=== PATIENT | female | born 1975 | race Caucasian/White ===

== ENCOUNTER 2019-04-10 11:24 | Day surgery (SDC) ==
[~2019-04-10 11:24] MED LIST: DIPRIVAN 1% ONE; XYLOCAINE-MPF 2% ONE
[2019-04-10] MEDS ORDERED: REGLAN ONE (12:00)
[2019-04-10] MEDS ORDERED: LR 1,000 ML ONE ×2 (12:00→17:18)
[2019-04-10] MEDS ORDERED: KEFZOL 1 GM/D5W 2 GM/100 ML IVPB ONE (12:00)
[2019-04-10] MEDS ORDERED: PEPCID ONE (12:00)
[2019-04-10] MEDS ORDERED: DILAUDID ONE (13:24)
[2019-04-10] MEDS ORDERED: PRECEDEX ONE (13:39)
[2019-04-10] MEDS ORDERED: QUELICIN (DOSE) ONE (14:47)
[2019-04-10] MEDS ORDERED: ZOFRAN ONE (14:47)
[2019-04-10] MEDS ORDERED: ZEMURON ONE (14:47)
[2019-04-10] MEDS ORDERED: DECADRON ONE (14:47)
[2019-04-10] MEDS ORDERED: OFIRMEV 1000 MG/ISOTONIC SOLN 1,000 MG/100 ML BOTTLE ONE (16:36)
[2019-04-10] MEDS ORDERED: BRIDION ONE (16:40)
[2019-04-10] MEDS ORDERED: MORPHINE IV PRN (17:33)
--- NOTE | 2019-04-10 17:41 | Diag Imaging Result Doc PS360 ---
EXAM: CHEST-PORTABLE HISTORY: post op percutaneous neph TECHNIQUE: Single view COMPARISON: 07/03/2014 FINDINGS: Poor inspiratory effort. No cardiomegaly. No pulmonary edema. No pneumothoraces or pleural effusions identified. There is atelectasis in the lower left lung. IMPRESSION: Left basilar atelectasis Electronically signed by Jesse Cullen 04/10/2019 5:39 PM
[2019-04-10] MEDS ORDERED: NS 1,000 ML ONE (17:44)
[2019-04-10] MEDS ORDERED: DILAUDID IV PRN ×2 (17:45)
[2019-04-10] MEDS ORDERED: PHENERGAN PO PRN (17:45)
[2019-04-10] MEDS ORDERED: PHENERGAN IV PRN (17:45)
[2019-04-10] MEDS ORDERED: ZOFRAN IV PRN (17:45)
[2019-04-10] MEDS ORDERED: OXY IR PO PRN ×2 (17:45)
[2019-04-10] MEDS ORDERED: SODIUM CHLORIDE 0.9% INJ PRN (17:45)
[2019-04-10] MEDS ORDERED: DITROPAN PO PRN (17:45)
[2019-04-10] MEDS ORDERED: BENADRYL LIQUID PO PRN (17:45)
[2019-04-10] MEDS ORDERED: BENADRYL IV PRN (17:45)
[2019-04-10] MEDS ORDERED: PHENERGAN PR PRN (17:45)
[2019-04-10] MEDS ORDERED: LABETALOL IV PRN (17:45)
[2019-04-10 18:33] LABS: BASO# 0.04 X1000 (0.0-0.2); BASO% 0.2 % (0.0-0.8); EOS% 1.8 % (0.0-10.0); HEMATOCRIT 33.8 % (37.0-47.0); HEMOGLOBIN 10.8 g/dL (12.0-16.0); IMM GRAN# 0.12 X1000 (0.0-0.04); IMM GRAN% 0.6 % (0.0-0.5); LYMPH# 3.27 X1000 (1.2-3.4); MCH 28.3 PG (27-31); MCV 88.5 FL (81-99); MONO# 0.46 X1000 (0.11-0.59); MONO% 2.1 % (1.7-9.3); MPV 9.2 FL (7.4-10.4); NEUT# 17.48 X1000 (1.4-6.5); NEUT% 80.3 % (42.2-75.2); PLT 463 X1000 (130-400); RBC 3.82 XMIL (4.2-5.4); RDW 15.1 % (11.5-14.5); WBC 21.77 X1000 (4.8-10.8)
[2019-04-10] MEDS: TORADOL IV SCH ×2 (18:39→23:41)
[2019-04-10] MEDS: NS 1,000 ML IV SCH (18:40)
[2019-04-10 18:57] LABS: AGAP 16; BUN 17 mg/dL (8-22); CALCIUM 9.4 mg/dL (8.8-10.2); CHLORIDE 101 mmol/L (98-107); COSMO 289; ESTIMATED GFR > 60; GLUCOSE 314 mg/dL (70-104); POTASSIUM 4.5 mmol/L (3.5-5.1); SODIUM 138 mmol/L (136-145); TCO2 21 mmol/L (25-35)
[2019-04-10 19:14] LABS: BANDS 1 % (0-1); LARGE PLATELETS OCCASIONAL; LYMPHS 12 % (21-51); MONO 2 % (1-9); SEGS 85 % (42-75)
[2019-04-10] MEDS: KEFZOL 2 GM/D5W 2 GM/50 ML IVPB IV SCH (22:18)
[2019-04-10] MEDS: PERIDEX MT SCH (22:18)
[2019-04-10] MEDS: COLACE PO SCH (22:18)
[2019-04-10] MEDS: NORVASC PO SCH (22:18)
[2019-04-10] MEDS ORDERED: OFIRMEV 1000 MG/ISOTONIC SOLN 1,000 MG/100 ML BOTTLE IV PRN (23:00)
[2019-04-11] MEDS: NS 1,000 ML IV SCH (05:32)
[2019-04-11] MEDS: TORADOL IV SCH (05:33)
[2019-04-11] MEDS: KEFZOL 2 GM/D5W 2 GM/50 ML IVPB IV SCH (05:33)
[2019-04-11 06:12] LABS: HEMATOCRIT 31.4 % (37.0-47.0); HEMOGLOBIN 9.8 g/dL (12.0-16.0); MCH 28.2 PG (27-31); MCHC 31.2 g/dL (33-37); MCV 90.5 FL (81-99); MPV 9.5 FL (7.4-10.4); RBC 3.47 XMIL (4.2-5.4); WBC 15.24 X1000 (4.8-10.8)
[2019-04-11 06:23] LABS: CALCIUM 8.8 mg/dL (8.8-10.2); CREATININE 1.2 mg/dL (0.5-0.9); POTASSIUM 4.3 mmol/L (3.5-5.1)
--- NOTE | 2019-04-11 07:29 | Diag Imaging Result Doc PS360 ---
EXAM: KUB ABDOMEN INDICATION: CYSTOSCOPY SURGERY TECHNIQUE: 2 views COMPARISON: 07/03/2014 FINDINGS: There are unremarkable bowel gas and stool patterns. There is no obstructive bowel pattern. There is no evidence of large volume free abdominal gas. There is a right sided ureteral stent in the expected position. IMPRESSION: No evidence of acute pathology by plain radiograph. Electronically signed by Joseph Jaime 04/11/2019 7:26 AM
[2019-04-11 08:24] VITALS: BP 148/78
[2019-04-11] MEDS ORDERED: PRINZIDE 10/12.5MG PO SCH (09:00)
[2019-04-11] MEDS: PERIDEX MT SCH (09:26)
[2019-04-11] MEDS: COLACE PO SCH (09:27)
[2019-04-11] MEDS: NORVASC PO SCH (09:27)
[2019-04-11] MEDS ORDERED: TYLENOL PO PRN (23:00)
--- NOTE | 2019-04-15 14:38 | OPERATIVE NOTE ---
PROCEDURE DATE: 04/10/2019 SURGEON: Jonathon Moon MD. 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 PROCEDURE NAME: 1. Cystoscopy. 2. Placement of right ureteral catheter. 3. Right antegrade percutaneous nephrostomy access. 4. Right percutaneous nephrostolithotomy. 5. Cystoscopy with retrograde placement of a right 6-Colombian-24 cm ureteral stent. INDICATIONS: A 44-year-old female with recurrent urolithiasis who presented with a large right distal ureteral stone for which she underwent ureteroscopy with laser lithotripsy. During admission, she was found to have a very large staghorn stone, at least over 3 cm. She presents for definitive intervention. FINDINGS: There were several sizable stones ranging from 8 to 15 mm in the lower pole area. There were also some smaller stones in the upper pole. There was a large staghorn calculus that extended into the area of ureteropelvic junction. Multiple stone fragments were removed and discarded as her stone has been analyzed. Successful stent placement in the retrograde fashion after conclusion of procedure. Access was done via lower pole calyx. DESCRIPTION OF PROCEDURE: After obtaining informed consent, patient was brought to the operating room. Perioperative antibiotics and general endotracheal anesthesia were administered. She was first placed in modified frogleg position on the stretcher with the genitals prepped and draped in sterile fashion. A 21-Colombian rigid cystoscope was then used to gain access to the urethra and the bladder. Her bladder was briefly examined and I did not see any mucosal lesions, excessive trabeculations, diverticula noted. Her right ureteral orifice was cannulated with PTFE wire followed by introduction of a 5-Colombian open-ended ureteral catheter over the wire to approximately the 20 cm perry. The cystoscope was then removed. A 16-Colombian Mendoza catheter was introduced and bladder was drained. 10 mL of sterile water were placed in the balloon. A 0 silk suture was used to secure the open-ended ureteral catheter to the Mendoza catheter. We then positioned the patient in prone on the table. Her upper and lower extremities and her breasts were appropriately padded. She was reprepped and redraped in sterile fashion. We then performed right retrograde pyelogram by introducing 50% diluted Omnipaque dye via previous introduced open-ended ureteral catheter. It revealed fairly dilated calices with what appeared to be several larger filling defects in the lower pole, interpolar region, and upper pole area as well as a huge filling defect consistent with a staghorn stone which was likely 5 cm in size. I elected to use one of the lower pole calices for access. We used fluoroscopy in the anterior-posterior orientation at a 20 degree angle. A small stab incision was made with an 11 blade and a finder needle was introduced. Under fluoroscopic guidance, the tip of the needle was positioned at the entrance of a lower pole calyx. We confirmed its proper position by seeing the return of light pink urine from the sheath of the needle. Following that, I introduced a Sensor wire via the needle into the right renal pelvis. We then used sequential dilators from 8, 10, and 12-Colombian to dilate the tract followed by introduction of the dual obturator catheter with the inner lumen retrieved. Since I had a large outer lumen, I was now able to place a PTFE wire as our working wire. NephroMax balloon was introduced over the PTFE wire with the radiopaque tip positioned at the entrance of the calyx We increased the pressure in the balloon to 14 cm of water. We then introduced a 30-Colombian sheath was over the NephroMax balloon followed by deflation of the balloon in its removal. Rigid resectoscope was then introduced and we were just at the entrance of the lower pole. The multiple stones came into the view. Perc NCircle. Tool was used to retrieve stones which again ranged from 8 mm to 15 mm. We then encountered what appeared to be a large solid staghorn stone. Ultrasound wand was then used to break the stone up and suck the fragments out. I spent a considerable amount of time working on the stone and renal pelvis and it appeared to extend all the way to the ureteropelvic junction. I was able to visualize the tip of our open-ended ureteral catheter. Eventually, once the large stone was cleared, I used the rigid nephroscope to inspect the upper pole calices which also had some smaller stones. Those were treated both with Perc NCircle and the ultrasound wand. I then used the flexible cystoscope and examined all the major calices after I performed retrograde pyelogram. There were a few more stones which were retrieved with 0 Nitinol basket. We were satisfied that there were no sizable fragments remaining. Hemostasis appeared to be excellent. I used a 16-Colombian flexible cystoscope to reexamine the ureteropelvic junction area and there were no stones of the UPJ, neither was there evidence of injury to the UPJ. We then removed the flexible cystoscope and the 30-Colombian sheath. A 3-0 chromic suture was used x4 to reapproximate the incision. She was then turned back in a modified frogleg position onto the stretcher. Her genitals were again reprepped and redraped. A 21- Colombian rigid cystoscope was introduced into the urethra and the bladder and a PTFE wire was introduced into the right ureteral orifice up to the level of the right renal pelvis. This was followed by introduction of a 6-Colombian-24 cm ureteral stent over the wire via the cystoscope with the proximal coil position confirmed fluoroscopically and distal coil directly visualized. The string was detached from the stent. Bladder was emptied. The cystoscope was removed. She was extubated and taken to PACU for further recovery. ESTIMATED BLOOD LOSS: 100 mL. COMPLICATIONS: None. DRAINS: A 6-Colombian-24 cm ureteral stent. SPECIMENS: Multiple stone fragments as well as multiple stone material from the ultrasound wand which was discarded as her previous ureteral stone has been analyzed. I have actually given the multiple stone fragments to her family. DISPOSITION: To PACU and subsequently to the floor for observation with chest x-ray and labs in the recovery. cc: Jonathon Moon MD MTDD
== END 2019-04-11 09:41 | disposition home or self-care (01) ==
LOC: OR 11:24 → 4N 11:24 → OR 04-11 09:41
PROVIDERS: ATTEND Urology